=== PATIENT | male | born 1945 | race Caucasian/White ===

== ENCOUNTER 2019-01-06 10:24 | Outpatient (CLI) | payer OTHER ==
[~2019-01-06 10:24] MED LIST: BISMUTH SUBSALICYLATE 262 MG/15 ML PO; CIPRO500 MG PO; FLAGYL500MG PO; INTESTINEX1 CA1 PO; LIPITOR20 MG; Pepcid 20 MG TABLET PO
== END 2019-01-06 14:52 | disposition home or self-care (01) ==
LOC: LAB 10:24
DX: R97.21 Rising PSA following treatment for malignant neoplasm of prostate (principal)

== ENCOUNTER 2019-01-20 07:50 | Outpatient (CLI) | payer OTHER | END 2019-01-20 07:52 | disposition home or self-care (01) | LOC: TOM 07:50 | DX: C61 Malignant neoplasm of prostate (principal) ==

== ENCOUNTER → 2019-01-26 | Outpatient (CLI) | payer OTHER | END | disposition home or self-care (01) | LOC: NUCLEAR 07:51 | DX: C61 Malignant neoplasm of prostate (principal) | CPT/HCPCS: 78320; A9503 ==

== ENCOUNTER 2019-02-20 07:04 | Outpatient (CLI) | payer OTHER | END 2019-02-20 07:52 | disposition home or self-care (01) | LOC: SONOGRAMA 07:04 | DX: C61 Malignant neoplasm of prostate (principal); R97.20 Elevated prostate specific antigen [PSA] ==

== ENCOUNTER 2019-06-15 09:10 | Outpatient (CLI) | payer OTHER | END 2019-06-15 09:24 | disposition home or self-care (01) | LOC: NUCLEAR 09:10 | DX: C61 Malignant neoplasm of prostate (principal) | CPT/HCPCS: 78320; A9503 ==

== ENCOUNTER 2019-10-13 09:43 | Outpatient (CLI) | payer OTHER | END 2019-10-13 10:02 | disposition home or self-care (01) | LOC: NUCLEAR 09:43 | DX: C61 Malignant neoplasm of prostate (principal); C79.51 Secondary malignant neoplasm of bone | CPT/HCPCS: 78803; A9503 ==

== ENCOUNTER 2020-03-09 07:35 | Outpatient (CLI) | payer OTHER | END 2020-03-09 07:49 | disposition home or self-care (01) | LOC: NUCLEAR 07:35 | PROVIDERS: ATTEND Internal Medicine | DX: C61 Malignant neoplasm of prostate (principal); C79.51 Secondary malignant neoplasm of bone | CPT/HCPCS: 78803; A9503 ==

== ENCOUNTER 2020-04-24 11:07 | Emergency (ER) | payer OTHER ==
[~2020-04-24] VITALS: Ht 172.7 cm; Wt 72.6 kg
[2020-04-24] MEDS ORDERED: LEVOTHYROXINE25 MCG PO (11:18)
[2020-04-24] MEDS ORDERED: ULTRAM50 MG PO (11:18)
[2020-04-24] MEDS ORDERED: XTANDI40 MG PO (11:20)
[2020-04-24] MEDS ORDERED: CENTRUM MEN'S1 EACH PO (11:20)
[2020-04-24] MEDS ORDERED: DURACHOL 3,7751 EACH PO (11:21)
[2020-04-24] MEDS ORDERED: HORIZANT300 MG PO (15:26)
[2020-04-24] MEDS ORDERED: KETO10TA2 PO (15:26)
== END 2020-04-24 15:39 | disposition home or self-care (01) ==
LOC: ER 11:07
DX: M54.42 Lumbago with sciatica, left side (principal)

== ENCOUNTER 2020-05-02 07:25 | Outpatient (CLI) | payer OTHER ==
[~2020-05-02 07:25] MED LIST changes: +CENTRUM MEN'S1 EACH PO; +DURACHOL 3,7751 EACH PO; +HORIZANT300 MG PO; +KETO10TA2 PO; +LEVOTHYROXINE25 MCG PO; +ULTRAM50 MG PO; +XTANDI40 MG PO
== END 2020-05-02 07:30 | disposition home or self-care (01) ==
LOC: NUCLEAR 07:25
PROVIDERS: ATTEND Internal Medicine
DX: C61 Malignant neoplasm of prostate (principal); C79.51 Secondary malignant neoplasm of bone
CPT/HCPCS: 78803; A9503

== ENCOUNTER 2020-05-05 07:45 | Outpatient (CLI) | payer OTHER | END 2020-05-05 07:52 | disposition home or self-care (01) | LOC: TOM 07:45 | PROVIDERS: ATTEND Urology | DX: C61 Malignant neoplasm of prostate (principal) ==

== ENCOUNTER 2020-06-28 13:07 | Outpatient (CLI) | payer OTHER | END 2020-06-28 13:16 | disposition home or self-care (01) | LOC: LAB 13:07 | PROVIDERS: ATTEND Radiology Diagnostic Radiology | DX: N20.0 Calculus of kidney (principal) ==

== ENCOUNTER → 2020-07-04 | Outpatient (CLI) | payer OTHER | END | disposition home or self-care (01) | LOC: MRI 10:07 | PROVIDERS: ATTEND Internal Medicine | DX: C61 Malignant neoplasm of prostate (principal); N41.8 Other inflammatory diseases of prostate | CPT/HCPCS: 72197; A9575 ==

== ENCOUNTER 2020-11-01 09:13 | Outpatient (CLI) | payer OTHER | END 2020-11-01 09:15 | disposition home or self-care (01) | LOC: NUCLEAR 09:13 | DX: I82.402 Acute embolism and thrombosis of unspecified deep veins of left lower extremity (principal) ==

== ENCOUNTER 2020-11-11 11:04 | Outpatient (CLI) | payer OTHER | END 2020-11-11 11:13 | disposition home or self-care (01) | LOC: LAB 11:04 | PROVIDERS: ATTEND Radiology Diagnostic Radiology | DX: N20.0 Calculus of kidney (principal) ==

== ENCOUNTER 2020-11-22 08:51 | Outpatient (CLI) | payer OTHER | END 2020-11-22 08:59 | disposition home or self-care (01) | LOC: TOM 08:51 | PROVIDERS: ATTEND Internal Medicine | DX: C61 Malignant neoplasm of prostate (principal); C79.51 Secondary malignant neoplasm of bone | CPT/HCPCS: 71260; 74177; Q9965 ==

== ENCOUNTER 2020-12-02 06:10 | Day surgery (SDC) | payer OTHER ==
[2020-12-02] MEDS ORDERED: PERCOCET 5-3251 EACH PO ×2 (11:26)
== END 2020-12-02 15:14 | disposition home or self-care (01) ==
LOC: CIR.AMB 06:10
PROVIDERS: ATTEND Surgery
DX: C61 Malignant neoplasm of prostate (principal); Z20.822 Contact with and (suspected) exposure to COVID-19
CPT/HCPCS: 36561; C1751

== ENCOUNTER 2020-12-02 06:57 | Outpatient (CLI) | payer OTHER ==
[2020-12-02] MEDS ORDERED: PERCOCET 5-3251 EACH PO (11:26)
== END 2020-12-02 07:05 | disposition home or self-care (01) ==
LOC: LAB 06:57
PROVIDERS: ATTEND Surgery
DX: R07.89 Other chest pain (principal); Z03.818 Encounter for observation for suspected exposure to other biological agents ruled out; C61 Malignant neoplasm of prostate